=== PATIENT | male | born 1975 | race Hispanic/Latino ===

== ENCOUNTER 2022-02-27 10:19 | Day surgery (SDC) | payer OTHER, SELFPAY ==
[2022-02-27 12:50] LABS: CSF, Glucose 98 mg/dl (40-70); CSF, Protein 47 mg/dL (15-40)
[2022-02-27 13:30] LABS: Color Of CSF Supernatant COLORLESS (Colorless); Tube # 1; Unspun CSF Color COLORLESS (Colorless)
[2022-02-27 13:32] LABS: CSF Source CSF; Clarity Clear (Clear); Tube # 4
[2022-02-27 14:03] VITALS: BP 118/72
== END 2022-02-27 13:05 | disposition home or self-care (01) ==
LOC: RAD 10:19
PROVIDERS: ATTEND Radiology Radiation Oncology
PROC: 00JU3ZZ Inspection of Spinal Canal, Percutaneous Approach (ICD-10-PCS; principal; 2022-02-27)
DX: H47.11 Papilledema associated with increased intracranial pressure (principal)
CPT/HCPCS: 62270; 82945; 84157; 87070; 87205; 88112; 89051